=== PATIENT | female | born 1940 | race Hispanic/Latino ===

== ENCOUNTER 2022-11-05 14:09 | Emergency (ER) | payer OTHER, MEDICARE ==
[~2022-11-05] VITALS: Ht 152.4 cm; Wt 48.0 kg
[~2022-11-05 14:09] MED LIST: AGGRENOX 25 MG-21 EA PO; ASPIRIN EC81 MG; ATENOLOL50 MG PO; CELEXA20 MG; FLUTICASONE PRO16 GM NS; LISINOPRIL5 MG PO; LOVASTATIN20 MG PO; NORVASC5 MG PO; VISTARIL25 MG
--- NOTE | 2022-11-07 19:01 | EKG ---
[facility] [address] [place] [address] Signed Normal sinus rhythm Prolonged QT Abnormal ECG No previous ECGs available Confirmed by TONO ASCENCIO MD ([id number] on 11/07/2022 7:01:40 PM Electronically Signed By: TONO ASCENCIO MD 11/07/221900 PATIENT NAME: ERNESTINEFE Billingsley Electrocardiogram DATE OF : 44 PHYSICIAN: TONO ASCENCIO MD REPORT #: [id number] REPORT IS CONFIDENTIAL AND NOT TO BE RELEASED WITHOUT AUTHORIZATION
== END 2022-11-05 19:00 | disposition short-term general hospital (02) ==
LOC: ED 14:09
DX: S72.001A Fracture of unspecified part of neck of right femur, initial encounter for closed fracture (principal); I10 Essential (primary) hypertension; F17.200 Nicotine dependence, unspecified, uncomplicated; Z20.822 Contact with and (suspected) exposure to COVID-19; Z88.0 Allergy status to penicillin; Z88.2 Allergy status to sulfonamides; Z88.5 Allergy status to narcotic agent; Z79.899 Other long term (current) drug therapy; W01.0XXA Fall on same level from slipping, tripping and stumbling without subsequent striking against object, initial encounter
CPT/HCPCS: 36415; 71045; 73502; 80053; 85025; 87502; 93005; 93010; 96374; 96375; 96376; 99285-25; C9803; J1170; J2405; U0003